=== PATIENT | female | born 1975 | race Caucasian/White ===

== ENCOUNTER → 2016-12-02 | Outpatient (CLI) | payer MEDICARE, MEDICAID ==
[~2016-12-02] MED LIST: ALBUTEROL-200 PUFFS/ IH; ASPIR 8181 MG PO; ATORVASTATIN CA20 MG PO; BENTYL20 M1 PO; CEFDINIR 300MG300 MG PO; CELEXA20 M1 PO; DILAUDID4 MG PO; LIPITOR40 MG PO; NASONEX0.05 MG/AC; OXAZEPAM 15MG C15 MG PO; SERAX 10MG CAPS10 MG PO; SINGULAIR10 MG PO; SPIRIVA18 MCG IH; TRAMADOL 50MG T50 M1 PO; ZYRTEC ALLERGY10 MG PO
[2016-12-02 10:43] LABS: BUN 13 mg/dL (7-18)
[2016-12-02 10:49] LABS: GFR (ESTIMATED) 78 ML/MIN (59-)
== END ==
LOC: LAB 08:52
PROVIDERS: Family Medicine
DX: K58.1 Irritable bowel syndrome with constipation (principal)

== ENCOUNTER → 2016-12-03 | Outpatient (CLI) | payer MEDICARE, MEDICAID ==
--- NOTE | 2016-12-03 15:07 | RADIOLOGY REPORT PS360 ---
CT ABD W/WO CONTRAST INDICATION: Abdominal pain and distention in the left upper quadrant, burning GENERALIZED ABD PAIN ACUTE ORDERING PHYSICIAN: Wolf Ferreira MD PATIENT AGE: 41 years COMPARISON: None TECHNIQUE: Axial images are obtained without and with IV contrast. Oral contrast also utilized. Sagittal and coronal reformatted images are reviewed as well. FINDINGS: There are minimal atelectatic or fibrotic changes in the right lung base anteriorly. The liver, gallbladder, spleen, adrenal glands, and pancreas have an unremarkable appearance. No intestinal obstruction or free air is evident. There is a moderate amount of retained colonic feces throughout the colon. The pelvis was not imaged. No renal calculi, renal mass, hydronephrosis, or ureteral calculus evident. The visualized portion of the appendix has an unremarkable appearance. No abnormal fluid collections There is a sclerotic focus involving the right aspect of the sacrum at 11 mm an additional sclerotic focus involving the right ilium at 4 mm. These are nonspecific and may be due to bone islands. IMPRESSION: 1. No acute intra-abdominal pathology apparent. 2. Constipation. 3. Nonacute findings as described above
== END ==
LOC: RAD 08:44
DX: R10.84 Generalized abdominal pain (principal)
CPT/HCPCS: Q9967

== ENCOUNTER 2017-02-15 08:52 | Day surgery (SDC) | payer MEDICARE, MEDICAID ==
--- NOTE | 2017-02-15 10:57 | Operative Note ---
Endoscopy Report Date: 02/15/17 Preoperative diagnosis: Upper abdominal pain Procedure Type of procedure: 1. Esophagogastroduodenoscopy with biopsies 2. Total colonoscopy with polypectomy by snare and biopsy forceps Indications:Patient is a 41-year-old diabetic female originally referred from Dr. Ferreira for upper endoscopy. She describes a burning pain in her upper abdomen. She has had this for about one year. However, recently it has become more frequent occurring about 4 out of 7 days per week. It does not appear to be related to eating. She does state it is worse and more intense when she does not move her bowels. She has been more constipated lately. She has some associated nausea and bloating. Of note, patient has insulin pump. She still does have gallbladder. After my initial consultation prior to proceeding with immediate endoscopy I ordered radiologic imaging. She underwent upper gastrointestinal series which was normal. She had gallbladder ultrasound which revealed trace sludge with possible small gallbladder polyp. She had a HIDA scan which revealed an ejection fraction of 84 percent with no reproduction of symptoms. Of note, the patient states that she has been placed on pantoprazole and this has helped her symptoms somewhat. Also of note, she did have surgery about one year ago for pelvic prolapse. Plan was made for upper endoscopy and colonoscopy due to the fact that her symptoms were somewhat exacerbated with lack of bowel movements. Consent was obtained and patient was taken to same-day surgery endoscopy procedure room. She was positioned in a lateral decubitus position. Adequate intravenous sedation was achieved. Attention was first turned to upper endoscopy. Endoscope was inserted via the oropharynx advanced through the esophagus. Esophagus. Normal. Stomach was cannulated and insufflated. Retroflexion revealed a moderate sliding hiatal hernia. Gastric antral mucosal biopsy was obtained for CLOtest for H. pylori. Pylorus was traversed. Duodenum appeared unremarkable. Biopsies were obtained. A couple of gastric biopsies were obtained for histopathologic analysis. Biopsies were obtained at the gastroesophageal junction to rule out Altamirano's and at the distal esophagus to rule out microscopic esophagitis. Next attention was turned colonoscopy. Variable stiffness Olympus colonoscope was inserted via the anus and advanced to the cecum. Colonic preparation was fair. Ileocecal valve and appendiceal orifice were identified. In the cecum there was a moderate adenomatous appearing polyp removed with hot snare. There was a diminutive polyp near the appendiceal orifice removed with cold biopsy forceps. Colonoscope was withdrawn as suctioning was performed as needed. Additional polyps were encountered in the transverse colon, splenic flexure, sigmoid and rectosigmoid region. These were removed with a variety of technique. Within the rectum retroflexion was performed which revealed no evidence of any pathologic internal hemorrhoids. She had a total of a proximally 7 polyps removed. Findings 1. Hiatal Hernia 2. Polyp Follow-Up Follow-Up: Most likely the potential etiology of her symptoms as constipation predominant irritable bowel syndrome. This may be improved with dietary and medical regimen. Regarding the polyps, pending the pathology likely plan for repeat colonoscopy 3 years. at [id number]
[2017-02-15 13:45] VITALS: BP 95/63
== END 2017-02-15 11:25 | disposition home or self-care (01) ==
LOC: SDC 08:52
PROVIDERS: Surgery
PROC: 0DBL8ZX Excision of Transverse Colon, Via Natural or Artificial Opening Endoscopic, Diagnostic (ICD-10-PCS; 2017-02-15)
PROC: 0DBL8ZX Excision of Transverse Colon, Via Natural or Artificial Opening Endoscopic, Diagnostic (ICD-10-PCS; 2017-02-15)
PROC: 0DBN8ZX Excision of Sigmoid Colon, Via Natural or Artificial Opening Endoscopic, Diagnostic (ICD-10-PCS; 2017-02-15)
PROC: 0DB98ZX Excision of Duodenum, Via Natural or Artificial Opening Endoscopic, Diagnostic (ICD-10-PCS; 2017-02-15)
PROC: 0DB68ZX Excision of Stomach, Via Natural or Artificial Opening Endoscopic, Diagnostic (ICD-10-PCS; 2017-02-15)
PROC: 0DB38ZX Excision of Lower Esophagus, Via Natural or Artificial Opening Endoscopic, Diagnostic (ICD-10-PCS; 2017-02-15)
PROC: 0DB48ZX Excision of Esophagogastric Junction, Via Natural or Artificial Opening Endoscopic, Diagnostic (ICD-10-PCS; 2017-02-15)
PROC: 0DBH8ZX Excision of Cecum, Via Natural or Artificial Opening Endoscopic, Diagnostic (ICD-10-PCS; principal; 2017-02-15 09:30)
DX: Z12.11 Encounter for screening for malignant neoplasm of colon (principal); D12.0 Benign neoplasm of cecum; D12.7 Benign neoplasm of rectosigmoid junction; D12.5 Benign neoplasm of sigmoid colon; D12.3 Benign neoplasm of transverse colon; R10.10 Upper abdominal pain, unspecified; K44.9 Diaphragmatic hernia without obstruction or gangrene; E11.9 Type 2 diabetes mellitus without complications